=== PATIENT | female | born 1970 | race Caucasian/White ===

== ENCOUNTER → 2020-12-20 13:39 | Outpatient (CLI) | payer BC, SELFPAY ==
--- NOTE | ~2020-12-20 | MM_ITS ---
EXAMINATION: MM screening amalia BI w abdoulaye HISTORY: Screening mammogram TECHNIQUE: Craniocaudal and mediolateral oblique 3-D tomosynthesis images were obtained and synthetic 2-D images were generated. CAD analysis was submitted and interpreted. COMPARISON: 11/21/2017 diagnostic left mammogram and limited left breast ultrasound 11/13/2017, 01/08/2014 bilateral digital screening mammogram examinations BREAST PARENCHYMAL COMPOSITION: The breasts are heterogeneously dense, which may obscure small masses . FINDINGS: Scattered bilateral benign calcifications. Bilateral breast masses are suggested. Bilateral diagnostic mammography and bilateral breast ultrasou nd examination are recommended. IMPRESSION: 1. Possible bilateral breast masses 2. Bilateral diagnostic mammography and bilateral breast ultrasound examination are recommended. BI-RADS Category 0: Incomplete: Needs additional imaging evaluation. Reviewed, dictated and finalized at location A.
== END ==
PROVIDERS: PCP Physician Assistant; Visit Provider Physician Assistant
DX: Z12.31 Encounter for screening mammogram for malignant neoplasm of breast (principal); R92.8 Other abnormal and inconclusive findings on diagnostic imaging of breast
CPT/HCPCS: 77063; 77067

== ENCOUNTER → 2021-02-01 09:14 | Outpatient (CLI) | payer BC, SELFPAY ==
--- NOTE | ~2021-02-01 | MMUS_ITS ---
EXAMINATION: MM diagnostic mammo BI, US breast BI limited HISTORY: Possible breast masses on screening mammogram TECHNIQUE: Additional 3-D tomosynthesis images of the breasts were performed and synthetic 2-D images were generated. CAD analysis was submitted and interpreted. High resolution limited bilateral breast ultrasound was performed. COMPARISON: 12/20/2020, 11/21/2017, 11/13/2017, 01/08/2014 BREAST PARENCHYMAL COMPOSITION: The breasts are heterogeneously dense, which may obscure small masses . FINDINGS: MAMMOGRAPHIC FINDINGS: Left breast: An obscured 4 mm mass in the posterior third of the outer breast has an appearance simil ar to prior mammograms with spot compression. Right breast: There is a return to baseline fibroglandular appearance with spot compression of the ri ght breast in the area questioned on screening mammogram. ULTRASOUND: Left breast: There is a 6 mm round, hypoechoic mass with posterior acoustic enhancement and no safety intern al vascularity at the 3:00 location 3 cm from the which appears stable when compared with prior exami nations, consistent with a benign finding. There are cysts in the outer left breast. Right breast: There are cysts in the upper outer quadrant of the breast which measure up to 7 mm. IMPRESSION: 1. No mammographic or sonographic evidence of malignancy. 2. Recommend routine screening mammography in one year. BI-RADS Category 2: Benign finding(s). Reviewed, dictated and finalized at location D. IMPRESSION: 1. No mammographic or sonographic evidence of malignancy. 2. Recommend routine screening mammography in one year. BI-RADS Category 2: Benign finding(s).
== END ==
PROVIDERS: PCP Physician Assistant; Visit Provider Physician Assistant
DX: N63.10 Unspecified lump in the right breast, unspecified quadrant (principal); N63.20 Unspecified lump in the left breast, unspecified quadrant; R92.8 Other abnormal and inconclusive findings on diagnostic imaging of breast
CPT/HCPCS: 76642; 77066

== ENCOUNTER 2021-09-26 00:53 | Day surgery (SDC) | payer BC, SELFPAY ==
[2021-09-11 13:39] VITALS: BMI 19.0
[2021-09-26 11:46] VITALS: BP 115/70; PULSE 70; RESP 18; TEMP 37.2; O2SAT 98
[2021-09-26] MEDS: LACTATED RINGERS 1,000 ML 150 ML IV CONT (11:57)
--- NOTE | 2021-09-26 12:29 | WPDANESEPPF ---
Anes - Initial Pre Proc Eval Procedure: Operation Date: 09/26/21 13:00 Proposed Procedures p Screening Colonoscopy - Dawit Russo MD Date/Time: 09/26/21 12:29 Surgeon: Dawit Russo MD Pre Op Diagnosis: neoplasm screening Patient Data Age: 50 Gender: F Height: 1.73 m Weight: 55.6 kg Last Vital Signs Temp 99.0 F 09/26/21 11:46 Pulse 70 09/26/21 11:46 Resp 18 09/26/21 11:46 BP 115/70 09/26/21 11:46 Pulse Ox 98 09/26/21 11:46 Allergies Allergy/AdvReac Type Severity Reaction Status Date / Time No Known Allergies Allergy Unknown Verified 09/26/21 11:46 Home Medications Medication Instructions Recorded Confirmed Type bupropion HCl 150 mg PO DAILY 09/11/21 09/11/21 History fluoxetine [Prozac] 10 mg PO DAILY 09/11/21 09/11/21 History norethindrone-e.estradiol-iron [Lo 1 tablet PO DAILY 09/11/21 09/11/21 History Loestrin Fe] Patient hx anesthesia problems: none Family hx anesthesia problems: none Results Review: All pre-operative results and documents have been reviewed as part of the pre-operative evaluation. PMFSH Past Medical History Medical History (Updated 09/26/21 @ 12:24 by Greg Ro MD) Anxiety Depression Social History Social History (System 07/15/19 @ 15:38 by Viji Vasquez) Smoking status: Former smoker Tobacco type: cigarettes Anes - Eval Final PreProcedure Day of Procedure 09/26/21 12:29 Patient weight: normal Heart: regular rate and rhythm Lungs: clear to auscultation Airway: Mallampati scale class II Neurological: alert and oriented Last oral intake: >/= 8 hours ASA classification: II Emergent: no Anesthetic plan: proceed Anesthesia type and monitoring: general GIVS and standard monitoring Results Review: All pre-operative results and documents have been reviewed as part of the pre-operative evaluation. Informed Consent: The patient's anesthetic plan and its attendant risks and benefits were discussed with the patient/family/POA. Questions were solicited and answers provided to the satisfaction of the patient/family/POA.
--- NOTE | 2021-09-26 12:38 | WPDGICN ---
Assessment and Plan Assessment and plan (1) Encounter for screening colonoscopy: Code(s): Z12.11 - Encounter for screening for malignant neoplasm of colon Status: Acute Assessment and Plan: Patient presents for screening colonoscopy. Appears to be at average risk for colon polyps. GI Consult Note Consult date/time: 09/26/21 12:38 HPI: Devika Grullon is a 50 year old female Presents for screening colonoscopy. Patient's current weight appetite and bowel movements are normal. She denies abdominal pain. She has had no blood in her stools. Family history is noncontributory. Review of Systems Review of Systems: All systems reviewed & are unremarkable except as noted in HPI and below PMFSH Past Medical History Medical History (Updated 09/26/21 @ 12:39 by Dawit Russo MD) Anxiety Depression Social History Social History (System 07/15/19 @ 15:38 by Viji Vasquez) Smoking status: Former smoker Tobacco type: cigarettes Meds Home Medications and Allergies Home Medications Medication Instructions Recorded Confirmed Type bupropion HCl 150 mg PO DAILY 09/11/21 09/11/21 History fluoxetine [Prozac] 10 mg PO DAILY 09/11/21 09/11/21 History norethindrone-e.estradiol-iron [Lo 1 tablet PO DAILY 09/11/21 09/11/21 History Loestrin Fe] Allergies Allergy/AdvReac Type Severity Reaction Status Date / Time No Known Allergies Allergy Unknown Verified 09/26/21 11:46 Vital Signs Vital Signs - 24 hr 09/26/21 11:46 Temperature 99.0 F Pulse Rate 70 Respiratory Rate 18 Blood Pressure 115/70 Pulse Oximetry 98 Exam Narrative: Physical exam reveals patient to be alert. Vital signs stable. HEENT exam is unremarkable. Patient is anicteric. Lungs are clear to auscultation and percussion. Heart is without murmur or extra sounds. Abdominal exam bowel sounds present soft nontender with no organomegaly. Digital external rectal exam is normal.
[2021-09-26 13:03] VITALS: BP 97/36; PULSE 70; RESP 19; O2SAT 100
[2021-09-26 13:13] VITALS: BP 99/61; PULSE 59; RESP 16; O2SAT 95
[2021-09-26 13:26] VITALS: BP 106/59; PULSE 59; RESP 18; O2SAT 100
== END 2021-09-26 13:58 | disposition home or self-care (01) ==
PROVIDERS: PCP Physician Assistant; Visit Provider Internal Medicine Gastroenterology
PROC: 0DJD8ZZ Inspection of Lower Intestinal Tract, Via Natural or Artificial Opening Endoscopic (ICD-10-PCS; CPT 45378; principal; 2021-09-26 13:00)
DX: Z12.11 Encounter for screening for malignant neoplasm of colon (principal); K64.8 Other hemorrhoids; F41.8 Other specified anxiety disorders; Z87.891 Personal history of nicotine dependence
CPT/HCPCS: 45378; J2704; J7120

== ENCOUNTER → 2021-12-11 14:35 | Outpatient (REF) | payer BC, SELFPAY | LOC: ANHLAB 14:35 | PROVIDERS: PCP Physician Assistant; Visit Provider Nurse Practitioner | DX: D23.62 Other benign neoplasm of skin of left upper limb, including shoulder (principal) | CPT/HCPCS: 88305 ==

== ENCOUNTER → 2022-09-11 13:58 | Outpatient (CLI) | payer BC, SELFPAY ==
--- NOTE | ~2022-09-11 | MM_ITS ---
EXAMINATION: MM screening amalia BI w abdoulaye HISTORY: Screening TECHNIQUE: Craniocaudal and mediolateral oblique 3-D tomosynthesis images were obtained and synthetic 2-D images were generated. CAD analysis was submitted and interpreted. COMPARISON: Comparison to multiple prior studies sequentially, with oldest reviewed study dated 11/13. BREAST PARENCHYMAL COMPOSITION: Breast composed of scattered areas of fibroglandular density FINDINGS: There is no evidence of suspicious mass, calcification, or architectural distortion to sugg est malignancy in either breast. There has been no suspicious interval change. IMPRESSION: 1. No mammographic evidence of malignancy. 2. Recommend routine screening mammography in one year. BI-RADS Category 1: Negative Reviewed, dictated and finalized at location A. ET CUTTER
== END ==
PROVIDERS: PCP Physician Assistant; Visit Provider Physician Assistant
DX: Z12.31 Encounter for screening mammogram for malignant neoplasm of breast (principal)
CPT/HCPCS: 77063; 77067

== ENCOUNTER 2024-01-14 15:15 | Outpatient (CLI) | payer BC, SELFPAY ==
--- NOTE | ~2024-01-14 | US_ITS ---
EXAMINATION: US soft tissue lower back DATE: 01/14/2024 15:31 INDICATION: MASS OF SUBCUTANEOUS TISSUE OF BACK . TECHNIQUE: Grayscale and Doppler ultrasound images of the left lower back were obtained. COMPARISON: None. FINDINGS: The area of clinical concern in the left lower back was sonographically interrogated, revea ling no solid or cystic mass. IMPRESSION: No sonographic abnormality detected in the area of clinical concern. Reviewed, dictated and finalized at location K.
== END 2024-01-14 15:16 ==
LOC: MICIMG 15:16
PROVIDERS: PCP Physician Assistant; Visit Provider Physician Assistant
DX: R22.2 Localized swelling, mass and lump, trunk (principal)
CPT/HCPCS: 76705

== ENCOUNTER 2024-06-04 13:51 | Outpatient (CLI) | payer BC, SELFPAY ==
--- NOTE | ~2024-06-04 | MM_ITS ---
EXAMINATION: MM screening amalia BI w abdoulaye HISTORY: Screening TECHNIQUE: Craniocaudal and mediolateral oblique 3-D tomosynthesis images were obtained and synthetic 2-D images were generated. CAD analysis was submitted and interpreted. COMPARISON: Comparison to multiple prior studies sequentially, with oldest reviewed study dated 11/21. BREAST PARENCHYMAL COMPOSITION: Dense: The breasts are heterogeneously dense, which may obscure small masses FINDINGS: There are asymmetries in the upper outer quadrant of the left breast which are partially ob scured by dense fibroglandular tissue. The right breast is stable without evidence for malignancy. IMPRESSION: 1. Left breast asymmetries upper-outer quadrant. 2. Additional mammographic views and possible breast ultrasound are recommended. BI-RADS Category 0: Incomplete: Needs additional imaging evaluation. Reviewed, dictated and finalized at location B. OSE CELLAR CHARGE HAND IMPRESSION: 1. Left breast asymmetries upper-outer quadrant. 2. Additional mammographic views and possible breast ultrasound are recommended . BI-RADS Category 0: Incomplete: Needs additional imaging evaluation.
== END 2024-06-04 13:52 | disposition home or self-care (01) ==
LOC: MICIMG 13:52
PROVIDERS: PCP Physician Assistant; Visit Provider Nurse Practitioner Obstetrics & Gynecology
DX: Z12.31 Encounter for screening mammogram for malignant neoplasm of breast (principal); R92.8 Other abnormal and inconclusive findings on diagnostic imaging of breast
CPT/HCPCS: 77063; 77067

== ENCOUNTER 2024-07-01 07:58 | Outpatient (CLI) | payer BC, SELFPAY ==
--- NOTE | ~2024-07-01 | MMUS_ITS ---
EXAMINATION: MM diagnostic amalia LT w abdoulaye, US breast LT limited HISTORY: Follow-up left breast asymmetry. TECHNIQUE: Additional 3-D tomosynthesis images of the left breast were performed and synthetic 2-D im ages were generated. CAD analysis was submitted and interpreted. High resolution Limited left breast ultrasound was performed. COMPARISON: Comparison to multiple prior studies sequentially, with oldest reviewed study dated 03/2018. BREAST PARENCHYMAL COMPOSITION: Not dense: There are scattered areas of fibroglandular density. FINDINGS: MAMMOGRAPHIC FINDINGS: There are no suspicious calcifications or architectural distortion in the left breast to suggest venessa gnancy. No discrete mass. ULTRASOUND: Limited left breast ultrasound: At 3:00, 3 cm from the nipple there is an oval hypoechoic 5 mm mass w ith heterogeneous internal echoes. There is posterior acoustic enhancement. No internal vascularity. At 4:00, 3 cm from the nipple there is a 1 cm cyst. IMPRESSION: 1. Probable benign left breast mass at 3:00, 3 cm from the nipple measuring 5 mm. 2. Recommend 6 month follow-up Limited left breast ultrasound BI-RADS category 3, probably benign findings. Reviewed, dictated and finalized at location B. RONMENTAL CONSERVATION OFFICER IMPRESSION: 1. Probable benign left breast mass at 3:00, 3 cm from the nipple measuring 5 m m. 2. Recommend 6 month follow-up Limited left breast ultrasound BI-RADS category 3, probably benign findings.
== END 2024-07-01 07:59 | disposition home or self-care (01) ==
LOC: MICIMG 07:59
PROVIDERS: PCP Physician Assistant; Visit Provider Nurse Practitioner Obstetrics & Gynecology
DX: R92.8 Other abnormal and inconclusive findings on diagnostic imaging of breast (principal)
CPT/HCPCS: 76642; 77061; 77065; G0279

== ENCOUNTER 2025-06-10 08:27 | Outpatient (CLI) | payer BC, SELFPAY ==
--- NOTE | ~2025-06-10 | MMUS_ITS ---
EXAMINATION: US breast LT limited, MM diagnostic amalia BI w abdoulaye HISTORY: Six-month follow-up left breast mass TECHNIQUE: Additional 3-D tomosynthesis images of the breasts were performed and synthetic 2-D images were generated. CAD analysis was submitted and interpreted. High resolution Limited left breast ultrasound was performed. COMPARISON: Comparison to multiple prior studies sequentially, with oldest reviewed study dated 12/04/2017. BREAST PARENCHYMAL COMPOSITION: Dense: The breasts are heterogeneously dense, which may obscure small masses FINDINGS: MAMMOGRAPHIC FINDINGS: There are no suspicious masses, calcifications or architectural distortion in either breast to suggest malignancy. ULTRASOUND: Limited left breast ultrasound: At 3:00, 3 cm from the nipple there is 2 adjacent hypoechoic masses one of which measures 5 mm with heterogeneous internal echotexture, possibly a cluster of microcysts. This is unchanged from prior study allowing for differences of technique. There is an adjacent 6 mm c yst. IMPRESSION: 1. Stable likely benign left breast mass at 3:00, 3 cm from the nipple measuring 5 mm. 2. Given one year of interval stability, recommend 12 month followup bilateral mammogram and Limited left breast ultrasound. BI-RADS category 3, probably benign findings. Reviewed, dictated and finalized at location C. CAL CODING TECHNICIAN IMPRESSION: 1. Stable likely benign left breast mass at 3:00, 3 cm from the nipple measurin g 5 mm. 2. Given one year of interval stability, recommend 12 month followup bilateral mammogram and Limited left breast ultrasound. BI-RADS category 3, probably benign findings.
== END 2025-06-10 08:28 | disposition home or self-care (01) ==
LOC: MICIMG 08:27
PROVIDERS: PCP Physician Assistant; Visit Provider Nurse Practitioner Obstetrics & Gynecology
DX: R92.8 Other abnormal and inconclusive findings on diagnostic imaging of breast (principal)
CPT/HCPCS: 76642; 77062; 77066; G0279